=== PATIENT | male | born 2000 | race Hispanic/Latino ===

== ENCOUNTER 2023-03-23 18:17 | Emergency (ER) | payer SELFPAY ==
[2023-03-23] MEDS ORDERED: Ibuprofen 600 MG TAB ONE (18:48)
[2023-03-23] MEDS ORDERED: cefTRIAXone (ROCEPHIN) 1 GM VIAL ONE (19:14)
[2023-03-23] MEDS ORDERED: Ipratropium/Albuterol 3 ML NEB ONE (19:14)
[2023-03-23] MEDS ORDERED: Sodium Chloride 0.9% 1,000 ML ONE (19:14)
[2023-03-23] MEDS ORDERED: Sodium Chloride 0.9% 100 ML ONE (19:15)
[2023-03-23 19:46] LABS: Band 2 % (5-11); Hemoglobin 11.7 g/dL (14.0-18.0); Lymphocytes 10 % (21-51); MDiff Complete? YES; Mean Corpuscular HGB CONC 32.2 g/dL (32.0-36.0); Mean Corpuscular Hemoglobin 28.3 pg (27.0-31.0); Mean Corpuscular Volume 87.9 fl (78.0-98.0); Mean Platelet Volume 7.4 fL (7.4-10.4); Monocytes 3 % (0-10); Neutrophil 85 % (42-75); Platelet Adequacy Comment Appears Adequate; Platelet Count 258 10x3/uL (130-400); RBC Distribution Width 13.9 % (11.5-14.5); Red Blood Cell (RBC) Count 4.12 mill/uL (4.70-6.10); Toxic Granulation SLIGHT; White Blood Cell (WBC) Count 22.2 10x3/uL (4.8-10.8)
[2023-03-23 19:48] LABS: Base Excess-Venous 1.2 mmol/L (-2.0 to 3.0); CO2 Tension (PvCO2) 40.9 mmHg (42.0-51.0); Calcium, Ionized 1.07 mmol/L (1.15-1.33); Chloride 97 mmol/L (98-107); Hemoglobin - Calc 13.3 g/dL (14.0-18.0); Potassium 3.8 mmol/L (3.5-5.1); Sodium 133 mmol/L (138-145); T. Carbon Dioxide 27.2 mmol/L (22.0-28.0); vO2 Saturation-calc 79.4 % (60.0-85.0)
[2023-03-23 19:55] LABS: Albumin 3.1 g/dL (3.5-5.0); Alkaline Phosphatase 89 U/L (40-110); Anion Gap 13 mmol/L (10-20); BUN (Urea Nitrogen) 11 mg/dL (8.9-20.6); Bilirubin, Total 0.7 mg/dL (0.2-1.2); Calc. Creatinine Clearance 0 mL/min (70-130); Calcium 8.8 mg/dL (7.8-10.44); Carbon Dioxide 27 mmol/L (22-29); Chloride 96 mmol/L (98-107); Estimated GFR 93; Globulin 4.4 g/dL (2.4-3.5); Glucose 163 mg/dL (70-105); Protein, Total 7.5 g/dL (6.0-8.3); Sodium 132 mmol/L (136-145)
[2023-03-23 19:56] LABS: ALT (SGPT) 39 U/L (8-55); AST (SGOT) 66 U/L (5-34)
[2023-03-23 20:13] LABS: CKMB 2.9 ng/mL (0-6.6)
[2023-03-23] MEDS ORDERED: Sodium Chloride 0.9% 250 ML 250 ML ONE (20:23)
[2023-03-23] MEDS ORDERED: Azithromycin 500 MG VIAL ONE (20:23)
== END 2023-03-23 21:56 | disposition short-term general hospital (02) ==
LOC: MADERS 18:17
DX: J18.9 Pneumonia, unspecified organism (principal); E66.01 Morbid (severe) obesity due to excess calories
CPT/HCPCS: 36415; 71045; 80053; 82330; 82553; 82803; 83605; 83880; 84484; 85025; 85379; 87040; 87081; 87430; 93005; 94640; 94760; 96365; 96367; 96372; J0456; J0696; J1650; J3490; J7050; J7620